=== PATIENT | female | born 1940 | race Caucasian/White ===

== ENCOUNTER 2025-06-17 14:27 | Emergency (ER) | payer MEDICARE ==
[2025-06-17] MEDS ORDERED: Ondansetron PF 4 MG/2 ML Vial ONE (14:48)
[2025-06-17 15:13] LABS: INR-International Normal Ratio 1.0; PTT 25.4 sec (22.9-36.1); Prothrombin Time 13.2 sec (12.0-14.7)
[2025-06-17 15:17] LABS: Hematocrit 41.5 % (36.0-47.0); Hemoglobin 13.4 g/dL (12.0-16.0); MDiff Complete? YES; Mean Corpuscular Hemoglobin 29.1 pg (27.0-31.0); Mean Corpuscular Volume 89.8 fl (78.0-98.0); Platelet Adequacy Comment Appears Adequate; Platelet Count 315 10x3/uL (130-400); Red Blood Cell (RBC) Count 4.62 mill/uL (4.20-5.40); White Blood Cell (WBC) Count 14.9 10x3/uL (4.8-10.8)
[2025-06-17 15:20] LABS: ALT (SGPT) 32 U/L (Less than 34); AST (SGOT) 38 U/L (11-34); Albumin 4.0 g/dL (3.1-4.5); Alkaline Phosphatase 60 U/L (40-110); Anion Gap 17 mmol/L (10-20); BUN (Urea Nitrogen) 16 mg/dL (9.8-20.1); Bilirubin, Total 1.0 mg/dL (0.3-1.2); Calc. Creatinine Clearance 0 mL/min (70-130); Calcium 9.1 mg/dL (7.8-10.44); Carbon Dioxide 24 mmol/L (23-31); Chloride 106 mmol/L (98-107); Globulin 3.1 g/dL (2.4-3.5); Glucose 187 mg/dL (83-110); Potassium 4.0 mmol/L (3.5-5.1); Sodium 143 mmol/L (136-145)
[2025-06-17 15:26] LABS: Troponin I Less than 0.010 ng/mL (< 0.028)
== END 2025-06-17 18:31 | disposition short-term general hospital (02) ==
LOC: MADERS 14:27
DX: S72.032A Displaced midcervical fracture of left femur, initial encounter for closed fracture (principal); I10 Essential (primary) hypertension; E78.5 Hyperlipidemia, unspecified; Z79.899 Other long term (current) drug therapy; W19.XXXA Unspecified fall, initial encounter
CPT/HCPCS: 70450; 71045; 72125; 72170; 73552; 80053; 84484; 85025; 85610; 85730; 90471; 90715; 93005; 96374; 96375; 96376; 99285; J2270; J2405; 36415